=== PATIENT | male | born 1980 | race African-American/Black ===

== ENCOUNTER 2023-11-13 16:03 | Emergency (ER) | payer BC, OTHER ==
[2023-11-13 16:15] VITALS: BP 119/62; PULSE 81; RESP 18; TEMP 98.7; BMI 25.7
[2023-11-13 17:07] LABS: URINE APPEARANCE CLEAR; URINE BILIRUBIN NEGATIVE (NEGATIVE); URINE COLOR YELLOW; URINE GLUCOSE (UA) NEGATIVE (NEGATIVE); URINE KETONE NEGATIVE (NEGATIVE); URINE LEUK ESTERASE NEGATIVE (NEGATIVE); URINE NITRITE NEGATIVE (NEGATIVE); URINE PROTEIN TRACE (NEGATIVE); URINE UROBILINOGEN 0.2 mg/dL (0.2-1.0)
[2023-11-13 17:08] LABS: BASO % 0.7 % (0-2.0); EOS % 1.9 % (0-4.5); HEMATOCRIT 46.4 % (35.4-49); HEMOGLOBIN 15.8 GM/dL (11.7-16.9); MCH 27.8 pg (25.7-33.7); MCHC 34.1 g/dl (32.0-35.9); MEAN CELL VOLUME 81.6 fl (80-96); MEAN PLT VOLUME 8.6 fl (7.5-11.1); MONO % 7.1 % (3.8-10.2); NEUT % 71.3 % (42.8-82.8); PLATELET COUNT 236 10^3/uL (134-434); RBC 5.69 M/mm3 (4.00-5.60); RDW 13.5 % (11.9-15.9); WHITE BLOOD COUNT 9.3 K/mm3 (4.0-10.0)
[2023-11-13 17:33] LABS: POTASSIUM 4.2 mmol/L (3.5-5.1)
[2023-11-13 17:35] LABS: CALCIUM 9.4 mg/dL (8.5-10.1)
[2023-11-13 17:36] LABS: ALBUMIN 4.1 g/dl (3.4-5.0); BLOOD UREA NITROGEN 9.9 mg/dL (7-18)
[2023-11-13 17:39] LABS: CREATININE 1.3 mg/dL (0.55-1.3)
[2023-11-13 17:40] LABS: BILIRUBIN,TOTAL 0.5 mg/dL (0.2-1); TOT PROT 8.7 g/dl (6.4-8.2)
[2023-11-13] MEDS: SODIUM CHLORIDE 0.9% 500 ML INFUS.BAG IV ONE (18:39)
[2023-11-13] MEDS ORDERED: IBUPROFEN 600 MG TABLET (FP) PO ONE (20:27)
[2023-11-13] MEDS: IBUPROFEN 600 MG TABLET (FP) PO ONE (20:29)
== END 2023-11-13 20:30 | disposition home or self-care (01) ==
LOC: JER 16:03
DX: R10.32 Left lower quadrant pain (principal)
CPT/HCPCS: 36415; 74177-TC; 80053; 81003; 85025; 99285-25; Q9967